=== PATIENT | female | born 1995 | race Caucasian/White ===

== ENCOUNTER 2017-10-02 04:07 | Emergency (ER) | payer SELFPAY ==
[~2017-10-02] VITALS: Ht 162.6 cm; Wt 54.0 kg
[2017-10-02 04:11] VITALS: BP 116/80
[2017-10-02] MEDS ORDERED: FOSFOMYCIN 3 GM PACKET PO ONE (05:00)
== END 2017-10-02 05:32 | disposition home or self-care (01) ==
LOC: ED 05:27
DX: N30.00 Acute cystitis without hematuria (principal); F15.10 Other stimulant abuse, uncomplicated
CPT/HCPCS: 99283

== ENCOUNTER 2018-01-12 21:57 | Emergency (ER) | payer SELFPAY ==
[~2018-01-12] VITALS: Ht 162.6 cm; Wt 52.5 kg
[2018-01-12] MEDS ORDERED: DIPHENHYDRAMINE 50 MG/ML, 1ML ONE (22:29)
[2018-01-12] MEDS ORDERED: LORazepam 2 MG/ML, 1ML ONE (22:29)
[2018-01-12] MEDS ORDERED: HALOPERIDOL 5 MG/ML ONE (22:29)
[2018-01-12] MEDS ORDERED: DIPHENHYDRAMINE 50 MG/ML, 1ML IM ONE (22:30)
[2018-01-12] MEDS ORDERED: LORazepam 2 MG/ML, 1ML IM ONE (22:30)
[2018-01-12] MEDS ORDERED: HALOPERIDOL 5 MG/ML IM ONE (22:30)
[2018-01-12 22:58] LABS: HCG UR SG >= 1.030 (1.003-1.030)
[2018-01-12 22:59] LABS: CULTURE INDICATED? YES; MICROSCOPIC INDICATED
[2018-01-12] MEDS ORDERED: CIPROFLOXACIN 500 MG TABLET PO ONE (23:30)
[2018-01-13] MEDS ORDERED: CIPROFLOXACIN 500 MG TABLET ONE (02:43)
[2018-01-13 05:30] VITALS: BP 116/65
== END 2018-01-13 06:38 | disposition home or self-care (01) ==
LOC: ED 22:35
DX: T43.625A Adverse effect of amphetamines, initial encounter (principal); N30.00 Acute cystitis without hematuria; F41.9 Anxiety disorder, unspecified; Z72.9 Problem related to lifestyle, unspecified; Z91.14 Patient's other noncompliance with medication regimen; Z63.8 Other specified problems related to primary support group; Y92.89 Other specified places as the place of occurrence of the external cause
CPT/HCPCS: 81001; 81025; 87086; 96372; 99283; J1200; J1630; J2060